=== PATIENT | female | born 1950 | race Caucasian/White ===

== ENCOUNTER → 2021-03-16 | Outpatient (CLI) | payer MEDICARE ==
[~2021-03-16] MED LIST: ANTIVERT 25MG T25 MG PO; ARICEPT10 MG PO; AVAPRO150 MG PO; CALCIUM PO; CARDIZEM CD240 MG PO; CEFUROXIME500 MG PO; CIPRO500 MG PO; CRESTOR 10 MG T10 MG PO; DONEPEZIL HCL5 MG PO; ECOTRIN81 MG PO; EVISTA60 MG PO; NAMENDA10 MG PO; OMEPRAZOLE20 MG PO; QUETIAPINE FUMA25 MG PO; RANITIDINE HCL300 MG PO; ZOFRAN ODT 4 MG4 MG SL; ZYLOPRIM 100 M100 MG PO; ZYRTEC10 M3 PO
[2021-03-16 12:13] LABS: HEMOGLOBIN 12.8 gm/dl (12.3-15.3); RED BLOOD COUNT 3.93 M/UL (4.00-5.10); WHITE BLOOD COUNT 6.9 K/UL (4.5-11.0)
== END ==
LOC: LBRF 11:55
PROVIDERS: Internal Medicine
DX: R11.2 Nausea with vomiting, unspecified (principal); R41.82 Altered mental status, unspecified
CPT/HCPCS: 80053; 81001; 85025; 87077; 87086; 87186